=== PATIENT | female | born 2000 | race Caucasian/White ===

== ENCOUNTER 2024-12-13 08:00 | Inpatient (IN) ==
[2024-12-13] MEDS ORDERED: OXYTOCIN 30 UNITS/NSS 30 UNITS/500 ML BAG IV PRN (08:12)
[2024-12-13] MEDS ORDERED: LIDOCAINE 1% LOCAL 20 ML VIAL INFIL PRN (08:12)
[2024-12-13 09:14] LABS: Hematocrit (blood only) 34.4 % (37.0-47.0); Hemoglobin 11.7 g/dl (12.0-16.0); Mean Corpuscular Hemoglobin 26.8 pg (25.0-34.0); Mean Corpuscular Volume 78.7 fL (80.0-100.0); Platelet Count 171 K/uL (130-400); RDW Standard Deviation 42.4 fL (36.4-46.3); Red Blood Count 4.37 M/uL (4.20-5.40); White Blood Count 10.53 K/ul (4.8-10.8)
--- NOTE | 2024-12-13 09:24 | History & Physical Report ---
Date of Service December 13, 2024 Assessment & Plan (1) Encounter for induction of labor: Plan Admit; iv, labs, add Pitocin, FHR category 1 Admission and Anticipated Discharge Date Admission Date: December 13, 2024 History of Present Illness Primary Care Provider: Charles Ngo Contractions: Negative Painful: Negative Leaky Fluid: Negative Movement: Present Pt is a 24 yo Female, , 37 wks 1 day, arrives to Labor & Delivery for induction of labor. Pt appears AOx3 and is accompanied by her to the unit Labs: Rhesus Positive, GBS Negative Hx of STDs: Negative Allergies Allergy/AdvReac Type Severity Reaction Status Date / Time No Known Allergies Allergy Verified 12/12/24 13:35 Home Medications Medication Instructions Recorded Confirmed Type ondansetron HCl 4 mg tablet 4 mg PO Q6H PRN nausea and 08/06/24 12/12/24 Rx vomiting #30 tabs vitamins no.163-iron tab PO DAILY 10/16/24 12/12/24 History bis-gly 20 mg-folate no.10 1 mg tablet (PNV Tabs 20-1) levothyroxine 150 mcg tablet 150 mcg PO DAILY #90 tabs 11/08/24 12/13/24 Rx Patient History Medical History (Updated 12/13/24 @ 10:26 by Katharine Hollingsworth MD) Infertility, female Varicella vaccination Congenital omphalocele PCOS (polycystic ovarian syndrome) Hypothyroidism Surgical History (Updated 12/13/24 @ 08:29 by Shantell Khanna, R[place]) [place] teeth removed History of omphalocele surgical repair Family History Family/Other Breast cancer Maternal great grandmother Grandfather (Maternal) Diabetes Multiple myeloma Grandmother (Maternal) Lupus anticoagulant syndrome Denies family history of Ovarian cancer Prostate cancer Myocardial infarction Colorectal cancer Social History (Updated 05/07/24 @ 09:00 by Aura Castorena, R[place]) Smoking Status: Never smoker Do You Dip or Chew Tobacco: No; Hx Alcohol Use: No Hx Substance Use: No Preferred Language: Greenlandic Communication Ability: Effective Women'S Lacrosse Coach Required: No Beliefs That Will Affect Care: None marital status: marital status details: Laureano Joyce ([phone] Current Living Situation: Spouse Current Living Situation Comment: Lives with , 2 dogs and 2 cats- changing litter current occupational status: employed current occupation: Respiratory therapist Other Information That Helps Us Care for You: No Feels Safe at Home: Yes Safety Concerns: Feels Safe At This Time Dental Care, Regularly: Yes Seatbelt Use: always Sunscreen Use: Yes Review of Systems All systems reviewed & are unremarkable except as noted in HPI & below i. Denies fever, chills, sweats ii. Denies SOB, difficulty breathing, chest pain, palpitations, chest pressure iii. Denies breast pain. iv. Denies Dysuria v. Denies headache or changes in vision. Physical Exam Constitutional: WD/WN, vitals as above Eyes: PERRL, conjunctivae normal, anicteric sclerae ENMT: external ear and nose normal, oropharynx normal Neck: trachea midline, no thyromegaly Respiratory: normal respiratory effort, lungs clear to auscultation Cardiovascular: RRR, no murmur, no edema Gastrointestinal (Abdomen): normal bowel sounds, soft, nontender, no hepatosplenomegaly Musculoskeletal: no cyanosis or clubbing, extremities motor strength 5/5 Skin: no rashes, warm and dry Neurologic: patellar DTR's 2+ bilat, sensation intact Psychiatric: A+Ox3, euthymic affect Genitourinary: As per Dr. Saldivar's Attestation Lymphatic: no cervical or axillary lymphadenopathy Results & Data Vital Signs (Past 12 Hours) Vital Signs Temp Pulse Resp BP 12/13/24 08:12 36.9 C 20 12/13/24 08:12 79 143/81 H Supervising Physician Co-Signing Physician Notes Patient seen with resident agree with the above findings and plan. Cervical exam was noted to be closed/ 50/-3. Cervical Nicolas placed and will initiate oxytocin per regular protocol.
[2024-12-13] MEDS: LACTATED RINGER'S 1,000 ML IV PRN (09:28)
[2024-12-13] MEDS: OXYTOCIN 30 UNITS/NSS 30 UNITS/500 ML BAG IV PRN (09:45)
[2024-12-13] MEDS ORDERED: LIDOCAINE 2% MPF LOCAL 5 ML VIAL EPI PRN (13:47)
[2024-12-13] MEDS ORDERED: NALOXONE HCL 1 MG in SODIUM CHLORIDE 0.9% 1,000 ML IV PRN (13:47)
[2024-12-13] MEDS ORDERED: NALBUPHINE HCL INJ 10 MG/ML AMP IV PRN (13:47)
[2024-12-13] MEDS ORDERED: NALOXONE HCL 0.4 MG/1 ML VIAL/CARP IV PRN (13:47)
[2024-12-13] MEDS ORDERED: SODIUM CHLORIDE 0.9% PF INJ 10 ML VIAL EPI PRN (13:47)
[2024-12-13] MEDS ORDERED: ROPIVACAINE 0.5% PF 5 MG/ML 20 ML VIAL EPI PRN (13:47)
[2024-12-13] MEDS ORDERED: diphenhydrAMINE 50 MG/ML VIAL IV PRN (13:47)
--- NOTE | 2024-12-13 14:18 | Anesthesiology Consultation ---
Date of Service December 13, 2024 Assessment & Plan Chart Review Chart Review: Patient NOT seen in Pre Admission Testing and Acceptable Risk for Labor Epidural Consults Requested none ASA ASA3 Proposed Anesthesia Anesthesia Type: Labor Epidural Risk / Benefits Reviewed With: PT / POA / Parent / Guardian, Accepts Plan and Informed Consent Obtained History Height/Weight Height: 5 ft 2 in Weight: 111.584 kg Allergies Allergy/AdvReac Type Severity Reaction Status Date / Time No Known Allergies Allergy Verified 12/12/24 13:35 Medications Home Medications Medication Instructions Recorded Confirmed Last Taken ondansetron HCl 4 mg tablet 4 mg PO Q6H PRN nausea and 08/06/24 12/12/24 Unknown vomiting #30 tabs vitamins no.163-iron tab PO DAILY 10/16/24 12/12/24 12/13/24 05:30 bis-gly 20 mg-folate no.10 1 mg tablet (PNV Tabs 20-1) levothyroxine 150 mcg tablet 150 mcg PO DAILY #90 tabs 11/08/24 12/13/24 12/13/24 05:30 Active Medications Generic Name Dose Route Start Last Admin Trade Name Freq PRN Reason Stop Dose Admin Lactated Ringer's 1,000 mls @ 125 mls/hr 12/13/24 08:12 12/13/24 14:16 Lr IV 12/15/24 08:11 999 mls/hr .Q8H PRN Administration L&D Protocol Protocol Oxytocin 30 units in 500 mls @ 16 mls/hr 12/13/24 09:32 12/13/24 13:30 Pitocin 30 Units/Nss IV 12/15/24 09:31 0.96 units/hr .Q24H PRN 16 mls/hr Labor Induction/Augmentation Titration Protocol 0.96 UNITS/HR NPO Date Last Intake of Fluids: 12/13/24 Time Last Intake of Fluids: 14:00 Date Last Intake of Solids: 12/13/24 Time Last Intake of Solids: 06:00 Past Medical History Medical History Infertility, female Varicella vaccination Congenital omphalocele PCOS (polycystic ovarian syndrome) Hypothyroidism Exercise / Class Metabolic Activity 1 > 8 Run/Swim/Ski/Tennis Past Family History Family History Family/Other Breast cancer Maternal great grandmother Grandfather (Maternal) Diabetes Multiple myeloma Grandmother (Maternal) Lupus anticoagulant syndrome Denies family history of Ovarian cancer Prostate cancer Myocardial infarction Colorectal cancer Past Surgical History Surgical History [place] teeth removed History of omphalocele surgical repair Past Anesthesia History No Hx of Anesthesia Complications and No Family Hx of Anesthesia Complications History of PONV No Hx of PONV and No Hx of Motion Sickness Social History Smoking Status: Never smoker Do You Dip or Chew Tobacco: No Hx Alcohol Use: No Hx Substance Use: No Review of Systems ROS Unobtainable: All systems reviewed & are unremarkable except as noted in HPI & below Physical Exam Vital Signs Last Vital Signs Temp 36.7 C 12/13/24 11:53 Pulse 79 12/13/24 14:13 Resp 18 12/13/24 11:53 BP 137/96 12/13/24 13:38 Pulse Ox 93 12/13/24 14:13 Testing Laboratory Results 12/13/24 08:54 Blood Type A Positive 12/13/24 08:54 Antibody Screen NEGATIVE 12/13/24 08:54
[2024-12-13] MEDS: fentANYL 2 MCG/ML BUPIVacaine 0.125%-NSS 100ML BAG EPI PRN (14:31)
[2024-12-13] MEDS: LIDOCAINE 2%/EPINEPHRINE 1:200,000 20 ML PF EPI STA (14:35)
[2024-12-13] MEDS: SODIUM CHLORIDE 0.9% PF INJ 10 ML VIAL EPI STA (14:35)
[2024-12-13] MEDS: BUPIVACAINE 0.25% PF 30 ML VIAL EPI STA (14:35)
[2024-12-13] MEDS: BUPIVACAINE 0.25% PF 30 ML VIAL ONE ×2 (14:53→20:57)
[2024-12-13] MEDS: SODIUM CHLORIDE 0.9% PF INJ 10 ML VIAL ONE ×2 (14:54→20:57)
[2024-12-13] MEDS: fentANYL 2 MCG/ML BUPIVacaine 0.125%-NSS 100ML BAG ONE ×2 (14:54→20:57)
[2024-12-13] MEDS: LIDOCAINE 2%/EPINEPHRINE 1:200,000 20 ML PF ONE ×2 (14:54→20:57)
[2024-12-13] MEDS: BUPIVACAINE 0.25% PF 30 ML VIAL EPI PRN (19:20)
--- NOTE | 2024-12-13 19:34 | Anesthesia Procedure Note ---
Date of Service December 13, 2024 Anesthesia Epidural Re-Dose Vital Signs Temp Pulse Resp BP Pulse Ox 36.9 C 65 18 153/90 H 94 12/13/24 18:32 12/13/24 19:26 12/13/24 18:00 12/13/24 19:26 12/13/24 19:22 Notes Pain Intensity: 5 Dilatation (cm): 4.0 Effacement (%): 50 Called by nursing to evaluate epidural as the patient is having increased pain. The epidural was re-dosed with the following medications (all medications via epidural route) after negative aspiration of the epidural catheter for CSF/HEME. After Epidural Re-Dose Mental Status: alert / awake / arousable and participated in evaluation Pain: improving with treatment Airway Patency, RR, SpO2: stable & adequate BP & HR: stable & adequate Additional Notes: Patient complained of 5/10 pain. With ice, she feels cold down to L2. Dosed incrementally with 8 cc 0.25 bupi and 100 mcg fentanyl. Pain seemed to improve. Will check back in 30 min. HDS
--- NOTE | 2024-12-13 20:37 | Communication Note ---
Date of Service: December 13, 2024 Patient reports worsening pain. She noted improvement after last redose however given short time interval between feeling pain again, discussed with patient risks and benefits of replacing epidural. Patient agreeable.
--- NOTE | 2024-12-13 20:58 | Anesthesia Procedure Note ---
Date of Service December 13, 2024 Anesthesia Post Epidural Note Vital Signs Vital Signs: Temp Pulse Resp BP Pulse Ox 36.8 C 94 H 18 176/100 H 97 12/13/24 19:01 12/13/24 20:53 12/13/24 19:41 12/13/24 20:53 12/13/24 20:53 Pain Intensity Bilateral Abdomen: Pain Intensity: 5 Notes Mental Status: alert / awake / arousable and participated in evaluation Nausea / Vomiting: adequately controlled Pain: adequately controlled Airway Patency, RR, SpO2: stable & adequate BP & HR: stable & adequate Hydration State: stable & adequate Neuraxial Anesthesia: was administered and sensory block is resolving Anesthetic Complications: no major complications apparent Epidural: Removed without complications and With tip intact
--- NOTE | 2024-12-13 21:12 | Labor Progress Brief Note ---
Date of Service December 13, 2024 Subjective Reason For Note: Routine Evaluation This is a note recording evaluation that occurred at 1630. Scented for evaluation after cervical Nicolas came out Assessment & Plan (1) Encounter for induction of labor: Plan: Patient doing well. Cervical Nicolas out and patient ruptured for clear. Category 1 tracing. Vitals within normal limits. Patient comfortable with epidural. Admission and Anticipated Discharge Date Admission Date: December 13, 2024 Physical Exam Genitourinary: Manual OB Exam: + cervical dilation (4), + cervical effacement 50%, + station -2 and + amniotic fluid (AROM) clear OB Exam Monitor Tracing: + external FHT monitor used, + external uterine monitor used, + category I and + normal FHT variability Results & Data Vital Signs (Past 12 Hours) Vital Signs Temp Pulse Resp BP Pulse Ox 12/13/24 21:09 88 112/60 12/13/24 21:08 88 97 12/13/24 21:06 86 140/68 12/13/24 21:05 93 H 198/127 H 12/13/24 21:03 104 H 97 12/13/24 21:02 93 H 113/67 12/13/24 21:00 37.0 C 113 H 16 120/68 12/13/24 20:58 98 H 134/56 L 97 12/13/24 20:56 99 H 18 143/65 H 12/13/24 20:53 97 12/13/24 20:53 94 H 12/13/24 20:53 85 176/100 H 12/13/24 20:48 84 98 12/13/24 20:43 83 98 12/13/24 20:38 80 97 12/13/24 20:33 83 99 12/13/24 20:29 71 141/67 H 12/13/24 20:28 81 98 12/13/24 20:23 64 97 12/13/24 20:18 71 97 12/13/24 20:13 66 119/56 L 96 12/13/24 20:08 68 98 12/13/24 20:02 66 97 12/13/24 19:59 63 124/60 12/13/24 19:57 63 97 12/13/24 19:52 75 98 12/13/24 19:47 73 98 12/13/24 19:42 77 97 12/13/24 19:41 18 12/13/24 19:41 18 12/13/24 19:39 73 138/79 12/13/24 19:37 95 H 97 12/13/24 19:34 70 180/100 H 12/13/24 19:32 68 172/93 H 97 12/13/24 19:28 71 148/88 H 12/13/24 19:27 80 98 12/13/24 19:26 65 153/90 H 12/13/24 19:24 73 151/83 H 12/13/24 19:22 69 145/82 H 94 12/13/24 19:21 152/91 H 12/13/24 19:17 64 97 12/13/24 19:15 64 154/90 H 12/13/24 19:12 65 98 12/13/24 19:07 74 98 12/13/24 19:02 69 95 12/13/24 19:01 36.8 C 18 12/13/24 19:01 77 150/87 H 12/13/24 18:57 75 98 12/13/24 18:52 71 97 12/13/24 18:47 69 98 12/13/24 18:45 66 129/77 12/13/24 18:42 65 97 12/13/24 18:37 71 98 12/13/24 18:32 36.9 C 72 97 12/13/24 18:30 81 148/85 H 12/13/24 18:27 64 97 12/13/24 18:22 76 98 12/13/24 18:17 85 99 12/13/24 18:16 77 158/75 H 12/13/24 18:12 66 98 12/13/24 18:07 66 98 12/13/24 18:02 70 98 12/13/24 18:00 18 12/13/24 18:00 83 18 154/91 H 12/13/24 17:57 81 98 12/13/24 17:52 75 97 12/13/24 17:47 72 98 12/13/24 17:45 65 155/95 H 12/13/24 17:42 82 97 12/13/24 17:37 88 97 12/13/24 17:32 75 97 12/13/24 17:31 74 130/86 12/13/24 17:30 18 12/13/24 17:30 18 09/04/25 17:27 76 98 12/13/24 17:22 83 97 12/13/24 17:17 78 97 12/13/24 17:16 68 119/86 12/13/24 17:12 85 97 12/13/24 17:07 70 97 12/13/24 17:02 72 96 12/13/24 17:01 71 130/82 12/13/24 17:00 18 12/13/24 17:00 18 12/13/24 16:57 70 98 12/13/24 16:52 67 99 12/13/24 16:47 73 98 12/13/24 16:46 75 135/87 12/13/24 16:42 81 98 12/13/24 16:37 70 99 12/13/24 16:35 20 12/13/24 16:35 36.9 C 20 12/13/24 16:32 88 96 12/13/24 16:27 66 99 12/13/24 16:22 71 98 12/13/24 16:17 77 99 12/13/24 16:15 73 117/67 12/13/24 16:12 77 99 12/13/24 16:07 84 98 12/13/24 16:02 72 100 12/13/24 16:01 71 115/58 L 12/13/24 16:00 18 12/13/24 16:00 18 12/13/24 15:57 79 98 12/13/24 15:52 76 98 12/13/24 15:47 82 98 12/13/24 15:45 96 H 124/86 12/13/24 15:42 86 98 12/13/24 15:37 85 97 12/13/24 15:32 97 12/13/24 15:32 79 12/13/24 15:32 75 123/83 12/13/24 15:30 20 12/13/24 15:30 20 12/13/24 15:27 88 98 12/13/24 15:22 74 96 12/13/24 15:17 86 97 12/13/24 15:15 76 143/72 H 12/13/24 15:14 78 134/87 12/13/24 15:12 78 97 12/13/24 15:09 90 135/89 12/13/24 15:07 90 98 12/13/24 15:05 78 134/80 12/13/24 15:02 83 97 12/13/24 15:00 18 12/13/24 15:00 36.9 C 18 12/13/24 14:59 66 140/78 12/13/24 14:57 85 98 12/13/24 14:54 83 141/80 H 12/13/24 14:52 75 98 12/13/24 14:50 20 12/13/24 14:50 20 12/13/24 14:48 86 149/86 H 12/13/24 14:47 78 98 12/13/24 14:46 82 151/79 H 12/13/24 14:45 20 12/13/24 14:45 20 12/13/24 14:44 79 139/82 12/13/24 14:42 99 H 137/78 99 12/13/24 14:40 80 20 135/83 12/13/24 14:38 85 150/87 H 12/13/24 14:37 98 12/13/24 14:37 81 12/13/24 14:37 74 146/86 H 12/13/24 14:35 65 142/68 H 12/13/24 14:34 20 12/13/24 14:34 20 12/13/24 14:32 75 185/93 H 98 12/13/24 14:31 72 201/104 H 12/13/24 14:27 80 100 12/13/24 14:22 71 100 12/13/24 14:17 84 96 12/13/24 14:13 79 93 12/13/24 14:12 83 99 12/13/24 13:38 67 137/96 12/13/24 13:31 67 162/106 H 12/13/24 12:31 73 126/83 12/13/24 11:53 18 12/13/24 11:53 36.7 C 18 12/13/24 11:45 63 132/80 12/13/24 10:47 65 126/82 12/13/24 09:50 76 135/86 Coding Level of Care Code None Diagnoses Encounter for induction of labor Z34.90
--- NOTE | 2024-12-13 22:36 | Labor Progress Brief Note ---
Date of Service December 13, 2024 Assessment & Plan (1) Encounter for induction of labor: Plan: Cervix unchanged at 4/80-2. Pitocin at 28. Will discontinue oxytocin for 30 minutes and restart at 14. Category 1 tracing at present but was having intermittent late decelerations. Vitals within normal limit (2) Cholestasis during in third trimester: Admission and Anticipated Discharge Date Admission Date: December 13, 2024 Results & Data Vital Signs (Past 12 Hours) Vital Signs Temp Pulse Resp BP Pulse Ox 12/13/24 22:30 80 140/99 12/13/24 22:28 103 H 99 12/13/24 22:23 85 97 12/13/24 22:18 77 97 12/13/24 22:16 82 116/66 12/13/24 22:13 82 97 12/13/24 22:08 91 H 97 12/13/24 22:03 122 H 99 12/13/24 22:00 75 108/58 L 12/13/24 21:58 72 95 12/13/24 21:53 80 95 12/13/24 21:48 78 96 12/13/24 21:45 82 12/13/24 21:45 83 111/63 94 12/13/24 21:43 82 96 12/13/24 21:38 81 96 12/13/24 21:33 86 97 12/13/24 21:31 18 12/13/24 21:31 18 12/13/24 21:28 90 113/56 L 97 12/13/24 21:25 86 115/61 12/13/24 21:23 79 97 12/13/24 21:19 93 H 133/69 12/13/24 21:18 90 97 12/13/24 21:14 90 119/58 L 12/13/24 21:13 94 H 98 12/13/24 21:11 91 H 116/58 L 12/13/24 21:09 88 112/60 12/13/24 21:08 88 97 12/13/24 21:06 86 140/68 12/13/24 21:05 93 H 198/127 H 12/13/24 21:03 104 H 97 12/13/24 21:02 93 H 113/67 12/13/24 21:00 37.0 C 113 H 16 120/68 12/13/24 20:58 98 H 134/56 L 97 12/13/24 20:56 99 H 18 143/65 H 12/13/24 20:53 97 12/13/24 20:53 94 H 12/13/24 20:53 85 176/100 H 12/13/24 20:48 84 98 12/13/24 20:43 83 98 12/13/24 20:38 80 97 12/13/24 20:33 83 99 12/13/24 20:29 71 141/67 H 12/13/24 20:28 81 98 12/13/24 20:23 64 97 12/13/24 20:18 71 97 12/13/24 20:13 66 119/56 L 96 12/13/24 20:08 68 98 12/13/24 20:02 66 97 12/13/24 19:59 63 124/60 12/13/24 19:57 63 97 12/13/24 19:52 75 98 12/13/24 19:47 73 98 12/13/24 19:42 77 97 12/13/24 19:41 18 12/13/24 19:41 18 12/13/24 19:39 73 138/79 12/13/24 19:37 95 H 97 12/13/24 19:34 70 180/100 H 12/13/24 19:32 68 172/93 H 97 12/13/24 19:28 71 148/88 H 12/13/24 19:27 80 98 12/13/24 19:26 65 153/90 H 12/13/24 19:24 73 151/83 H 12/13/24 19:22 69 145/82 H 94 12/13/24 19:21 152/91 H 12/13/24 19:17 64 97 12/13/24 19:15 64 154/90 H 12/13/24 19:12 65 98 12/13/24 19:07 74 98 12/13/24 19:02 69 95 12/13/24 19:01 36.8 C 18 12/13/24 19:01 77 150/87 H 12/13/24 18:57 75 98 12/13/24 18:52 71 97 12/13/24 18:47 69 98 12/13/24 18:45 66 129/77 12/13/24 18:42 65 97 12/13/24 18:37 71 98 12/13/24 18:32 36.9 C 72 97 12/13/24 18:30 81 148/85 H 12/13/24 18:27 64 97 12/13/24 18:22 76 98 12/13/24 18:17 85 99 12/13/24 18:16 77 158/75 H 12/13/24 18:12 66 98 12/13/24 18:07 66 98 12/13/24 18:02 70 98 12/13/24 18:00 18 12/13/24 18:00 83 18 154/91 H 12/13/24 17:57 81 98 12/13/24 17:52 75 97 12/13/24 17:47 72 98 12/13/24 17:45 65 155/95 H 12/13/24 17:42 82 97 12/13/24 17:37 88 97 12/13/24 17:32 75 97 12/13/24 17:31 74 130/86 12/13/24 17:30 18 12/13/24 17:30 18 12/13/24 17:27 76 98 12/13/24 17:22 83 97 12/13/24 17:17 78 97 12/13/24 17:16 68 119/86 12/13/24 17:12 85 97 12/13/24 17:07 70 97 12/13/24 17:02 72 96 12/13/24 17:01 71 130/82 12/13/24 17:00 18 12/13/24 17:00 18 12/13/24 16:57 70 98 12/13/24 16:52 67 99 12/13/24 16:47 73 98 12/13/24 16:46 75 135/87 12/13/24 16:42 81 98 12/13/24 16:37 70 99 12/13/24 16:35 20 12/13/24 16:35 36.9 C 20 12/13/24 16:32 88 96 12/13/24 16:27 66 99 12/13/24 16:22 71 98 12/13/24 16:17 77 99 12/13/24 16:15 73 117/67 12/13/24 16:12 77 99 12/13/24 16:07 84 98 12/13/24 16:02 72 100 12/13/24 16:01 71 115/58 L 12/13/24 16:00 18 12/13/24 16:00 18 12/13/24 15:57 79 98 12/13/24 15:52 76 98 12/13/24 15:47 82 98 12/13/24 15:45 96 H 124/86 12/13/24 15:42 86 98 12/13/24 15:37 85 97 12/13/24 15:32 97 12/13/24 15:32 79 12/13/24 15:32 75 123/83 12/13/24 15:30 20 12/13/24 15:30 20 12/13/24 15:27 88 98 12/13/24 15:22 74 96 12/13/24 15:17 86 97 12/13/24 15:15 76 143/72 H 12/13/24 15:14 78 134/87 12/13/24 15:12 78 97 12/13/24 15:09 90 135/89 12/13/24 15:07 90 98 12/13/24 15:05 78 134/80 12/13/24 15:02 83 97 12/13/24 15:00 18 12/13/24 15:00 36.9 C 18 12/13/24 14:59 66 140/78 12/13/24 14:57 85 98 12/13/24 14:54 83 141/80 H 12/13/24 14:52 75 98 12/13/24 14:50 20 12/13/24 14:50 20 12/13/24 14:48 86 149/86 H 12/13/24 14:47 78 98 12/13/24 14:46 82 151/79 H 12/13/24 14:45 20 12/13/24 14:45 20 12/13/24 14:44 79 139/82 12/13/24 14:42 99 H 137/78 99 12/13/24 14:40 80 20 135/83 12/13/24 14:38 85 150/87 H 12/13/24 14:37 98 12/13/24 14:37 81 12/13/24 14:37 74 146/86 H 12/13/24 14:35 65 142/68 H 12/13/24 14:34 20 12/13/24 14:34 20 12/13/24 14:32 75 185/93 H 98 12/13/24 14:31 72 201/104 H 12/13/24 14:27 80 100 12/13/24 14:22 71 100 12/13/24 14:17 84 96 12/13/24 14:13 79 93 12/13/24 14:12 83 99 12/13/24 13:38 67 137/96 12/13/24 13:31 67 162/106 H 12/13/24 12:31 73 126/83 12/13/24 11:53 18 12/13/24 11:53 36.7 C 18 12/13/24 11:45 63 132/80 12/13/24 10:47 65 126/82 Coding Level of Care Code None Diagnoses Encounter for induction of labor Z34.90 Cholestasis during in third trimester O26.643
--- NOTE | 2024-12-14 07:12 | Labor Progress Brief Note ---
Date of Service December 14, 2024 Subjective Reason For Note: Routine Evaluation Assessment & Plan (1) Encounter for induction of labor: Plan: No cervical change noted. IUPC showing inadequate contractions. Will disc ontinue Pitocin for washout. Will restart after approximately 30 minutes. Category 1 tracing. Vitals within normal limits (2) Cholestasis during in third trimester: Admission and Anticipated Discharge Date Admission Date: December 13, 2024 Physical Exam Genitourinary: OB Exam Monitor Tracing: + external FHT monitor used, + external uterine monitor used, + category I and + normal FHT variability 5/80/-2 per nurse exam. Results & Data Vital Signs (Past 12 Hours) Vital Signs Temp Pulse Resp BP Pulse Ox 12/14/24 04:33 78 97 12/14/24 04:30 16 136/86 12/14/24 04:28 71 97 12/14/24 04:23 75 97 12/14/24 04:18 78 97 12/14/24 04:16 72 140/79 12/14/24 04:13 75 96 12/14/24 04:08 75 97 12/14/24 04:03 80 96 12/14/24 04:00 79 16 147/85 H 12/14/24 03:58 74 96 12/14/24 03:53 73 96 12/14/24 03:48 78 97 12/14/24 03:47 99 H 93 12/14/24 03:45 73 141/65 H 12/14/24 03:43 81 95 12/14/24 03:38 72 98 12/14/24 03:33 69 97 12/14/24 03:31 75 131/70 12/14/24 03:28 74 96 12/14/24 03:23 76 97 12/14/24 03:18 76 98 12/14/24 03:13 76 97 12/14/24 03:08 71 98 12/14/24 03:03 75 99 12/14/24 03:01 18 12/14/24 03:01 36.9 C 18 12/14/24 03:00 74 136/79 12/14/24 02:58 85 99 12/14/24 02:53 111 H 100 12/14/24 02:48 75 96 12/14/24 02:46 75 107/70 12/14/24 02:45 75 94 12/14/24 02:43 74 95 12/14/24 02:38 74 95 12/14/24 02:33 71 97 12/14/24 02:31 72 102/70 12/14/24 02:28 71 96 12/14/24 02:23 77 94 12/14/24 02:18 75 96 12/14/24 02:16 70 108/69 12/14/24 02:13 76 96 12/14/24 02:08 79 96 12/14/24 02:03 73 97 12/14/24 02:00 68 108/63 12/14/24 01:58 72 97 12/14/24 01:53 73 97 12/14/24 01:48 72 97 12/14/24 01:44 71 110/63 12/14/24 01:43 72 97 12/14/24 01:38 72 97 12/14/24 01:33 83 97 12/14/24 01:31 71 107/68 12/14/24 01:28 71 97 12/14/24 01:23 75 97 12/14/24 01:18 71 97 12/14/24 01:16 69 127/72 12/14/24 01:13 78 97 12/14/24 01:08 71 97 12/14/24 01:04 16 12/14/24 01:04 36.7 C 16 12/14/24 01:03 79 98 12/14/24 00:58 72 97 12/14/24 00:53 69 96 12/14/24 00:48 66 97 12/14/24 00:43 68 96 12/14/24 00:38 66 96 12/14/24 00:33 65 96 12/14/24 00:28 70 96 12/14/24 00:23 76 95 12/14/24 00:18 97 12/14/24 00:18 74 12/14/24 00:18 75 94 12/14/24 00:16 75 132/92 12/14/24 00:13 81 96 12/14/24 00:08 70 97 12/14/24 00:03 68 98 12/14/24 00:02 73 134/77 12/14/24 00:00 81 94 12/13/24 23:58 66 97 12/13/24 23:53 67 97 12/13/24 23:48 70 97 12/13/24 23:45 73 170/81 H 12/13/24 23:43 67 96 12/13/24 23:38 73 97 12/13/24 23:33 66 97 12/13/24 23:28 66 97 12/13/24 23:23 69 97 12/13/24 23:18 75 96 12/13/24 23:13 76 97 12/13/24 23:08 74 97 12/13/24 23:03 72 97 12/13/24 23:01 16 12/13/24 23:01 36.9 C 16 12/13/24 23:00 77 110/54 L 12/13/24 22:58 77 97 12/13/24 22:53 71 97 12/13/24 22:48 86 98 12/13/24 22:45 72 120/56 L 12/13/24 22:43 75 97 12/13/24 22:38 75 98 12/13/24 22:33 79 98 12/13/24 22:30 80 140/99 12/13/24 22:28 103 H 99 12/13/24 22:23 85 97 12/13/24 22:18 77 97 12/13/24 22:16 82 116/66 12/13/24 22:13 82 97 12/13/24 22:08 91 H 97 12/13/24 22:03 122 H 99 12/13/24 22:00 75 108/58 L 12/13/24 21:58 72 95 12/13/24 21:53 80 95 12/13/24 21:48 78 96 12/13/24 21:45 82 12/13/24 21:45 83 111/63 94 12/13/24 21:43 82 96 12/13/24 21:38 81 96 12/13/24 21:33 86 97 12/13/24 21:31 18 12/13/24 21:31 18 12/13/24 21:28 90 113/56 L 97 12/13/24 21:25 86 115/61 12/13/24 21:23 79 97 12/13/24 21:19 93 H 133/69 12/13/24 21:18 90 97 12/13/24 21:14 90 119/58 L 12/13/24 21:13 94 H 98 12/13/24 21:11 91 H 116/58 L 12/13/24 21:09 88 112/60 12/13/24 21:08 88 97 12/13/24 21:06 86 140/68 12/13/24 21:05 93 H 198/127 H 12/13/24 21:03 104 H 97 12/13/24 21:02 93 H 113/67 12/13/24 21:00 37.0 C 113 H 16 120/68 12/13/24 20:58 98 H 134/56 L 97 12/13/24 20:56 99 H 18 143/65 H 12/13/24 20:53 97 12/13/24 20:53 94 H 12/13/24 20:53 85 176/100 H 12/13/24 20:48 84 98 12/13/24 20:43 83 98 12/13/24 20:38 80 97 12/13/24 20:33 83 99 12/13/24 20:29 71 141/67 H 12/13/24 20:28 81 98 12/13/24 20:23 64 97 12/13/24 20:18 71 97 12/13/24 20:13 66 119/56 L 96 12/13/24 20:08 68 98 12/13/24 20:02 66 97 12/13/24 19:59 63 124/60 12/13/24 19:57 63 97 12/13/24 19:52 75 98 12/13/24 19:47 73 98 12/13/24 19:42 77 97 12/13/24 19:41 18 12/13/24 19:41 18 12/13/24 19:39 73 138/79 12/13/24 19:37 95 H 97 12/13/24 19:34 70 180/100 H 12/13/24 19:32 68 172/93 H 97 12/13/24 19:28 71 148/88 H 12/13/24 19:27 80 98 12/13/24 19:26 65 153/90 H 12/13/24 19:24 73 151/83 H 12/13/24 19:22 69 145/82 H 94 12/13/24 19:21 152/91 H 12/13/24 19:17 64 97 12/13/24 19:15 64 154/90 H 12/13/24 19:12 65 98 12/13/24 19:07 74 98 12/13/24 19:02 69 95 12/13/24 19:01 36.8 C 18 12/13/24 19:01 77 150/87 H 12/13/24 18:57 75 98 12/13/24 18:52 71 97 12/13/24 18:47 69 98 12/13/24 18:45 66 129/77 12/13/24 18:42 65 97 12/13/24 18:37 71 98 12/13/24 18:32 36.9 C 72 97 12/13/24 18:30 81 148/85 H 12/13/24 18:27 64 97 12/13/24 18:22 76 98 12/13/24 18:17 85 99 12/13/24 18:16 77 158/75 H 12/13/24 18:12 66 98 12/13/24 18:07 66 98 12/13/24 18:02 70 98 12/13/24 18:00 18 12/13/24 18:00 83 18 154/91 H 12/13/24 17:57 81 98 12/13/24 17:52 75 97 12/13/24 17:47 72 98 12/13/24 17:45 65 155/95 H 12/13/24 17:42 82 97 12/13/24 17:37 88 97 12/13/24 17:32 75 97 12/13/24 17:31 74 130/86 12/13/24 17:30 18 12/13/24 17:30 18 12/13/24 17:27 76 98 12/13/24 17:22 83 97 12/13/24 17:17 78 97 12/13/24 17:16 68 119/86 12/13/24 17:12 85 97 12/13/24 17:07 70 97 12/13/24 17:02 72 96 12/13/24 17:01 71 130/82 12/13/24 17:00 18 12/13/24 17:00 18 12/13/24 16:57 70 98 12/13/24 16:52 67 99 12/13/24 16:47 73 98 12/13/24 16:46 75 135/87 12/13/24 16:42 81 98 Coding Level of Care Code None Diagnoses Encounter for induction of labor Z34.90 Cholestasis during in third trimester O26.643
--- NOTE | 2024-12-14 07:43 | Labor Progress Brief Note ---
Date of Service December 14, 2024 Subjective Reason For Note: Routine Evaluation Assessment & Plan (1) Cholestasis during in third trimester: (2) Encounter for induction of labor: Plan No progression noted. An adequate contractions noted on tocometer with Pit currently at 10. Several mild range blood pressures noted but denies any preeclampsia symptoms. Will continue to titrate Pitocin Admission and Anticipated Discharge Date Admission Date: December 13, 2024 Physical Exam Genitourinary: Manual OB Exam: + cervical dilation (4-5), + cervical effacement 70%, + station -2 and + amniotic fluid OB Exam Monitor Tracing: + external FHT monitor used, + external uterine monitor used, + category I and + normal FHT variability Results & Data Vital Signs (Past 12 Hours) Vital Signs Temp Pulse Resp BP Pulse Ox 12/14/24 07:39 85 154/92 H 12/14/24 07:38 87 166/99 H 98 12/14/24 07:33 86 98 12/14/24 07:28 72 97 12/14/24 07:23 83 99 12/14/24 07:18 92 H 98 12/14/24 07:16 80 127/65 12/14/24 07:13 84 97 12/14/24 07:08 93 H 98 12/14/24 07:03 77 96 12/14/24 07:02 77 115/62 12/14/24 06:58 79 95 12/14/24 06:53 72 97 12/14/24 06:48 75 96 12/14/24 06:46 77 103/73 12/14/24 06:43 73 97 12/14/24 06:38 80 96 12/14/24 06:33 74 98 12/14/24 06:30 77 111/70 12/14/24 06:28 79 98 12/14/24 06:23 76 98 12/14/24 06:18 74 98 12/14/24 06:15 86 124/71 12/14/24 06:13 92 H 97 12/14/24 06:08 79 98 12/14/24 06:03 97 H 97 12/14/24 05:58 80 98 12/14/24 05:53 93 H 97 12/14/24 05:48 94 H 98 12/14/24 05:46 77 131/68 12/14/24 05:43 80 97 12/14/24 05:38 79 97 12/14/24 05:33 76 97 12/14/24 05:28 77 97 12/14/24 05:23 74 97 12/14/24 05:18 75 97 12/14/24 05:15 83 134/82 12/14/24 05:13 77 97 12/14/24 05:08 78 97 12/14/24 05:03 91 H 154/92 H 98 12/14/24 05:00 90 151/104 H 12/14/24 04:58 96 H 98 12/14/24 04:55 18 12/14/24 04:55 37.0 C 18 12/14/24 04:53 106 H 99 12/14/24 04:48 82 99 12/14/24 04:46 68 150/78 H 12/14/24 04:43 75 96 12/14/24 04:38 72 96 12/14/24 04:33 78 97 12/14/24 04:30 16 136/86 12/14/24 04:28 71 97 12/14/24 04:23 75 97 12/14/24 04:18 78 97 12/14/24 04:16 72 140/79 12/14/24 04:13 75 96 12/14/24 04:08 75 97 12/14/24 04:03 80 96 12/14/24 04:00 79 16 147/85 H 12/14/24 03:58 74 96 12/14/24 03:53 73 96 12/14/24 03:48 78 97 12/14/24 03:47 99 H 93 12/14/24 03:45 73 141/65 H 12/14/24 03:43 81 95 12/14/24 03:38 72 98 12/14/24 03:33 69 97 12/14/24 03:31 75 131/70 12/14/24 03:28 74 96 12/14/24 03:23 76 97 12/14/24 03:18 76 98 12/14/24 03:13 76 97 12/14/24 03:08 71 98 12/14/24 03:03 75 99 12/14/24 03:01 18 12/14/24 03:01 36.9 C 18 12/14/24 03:00 74 136/79 12/14/24 02:58 85 99 12/14/24 02:53 111 H 100 12/14/24 02:48 75 96 12/14/24 02:46 75 107/70 12/14/24 02:45 75 94 12/14/24 02:43 74 95 12/14/24 02:38 74 95 12/14/24 02:33 71 97 12/14/24 02:31 72 102/70 12/14/24 02:28 71 96 12/14/24 02:23 77 94 12/14/24 02:18 75 96 12/14/24 02:16 70 108/69 12/14/24 02:13 76 96 12/14/24 02:08 79 96 12/14/24 02:03 73 97 12/14/24 02:00 68 108/63 12/14/24 01:58 72 97 12/14/24 01:53 73 97 12/14/24 01:48 72 97 12/14/24 01:44 71 110/63 12/14/24 01:43 72 97 12/14/24 01:38 72 97 12/14/24 01:33 83 97 12/14/24 01:31 71 107/68 12/14/24 01:28 71 97 12/14/24 01:23 75 97 12/14/24 01:18 71 97 12/14/24 01:16 69 127/72 12/14/24 01:13 78 97 12/14/24 01:08 71 97 12/14/24 01:04 16 12/14/24 01:04 36.7 C 16 12/14/24 01:03 79 98 12/14/24 00:58 72 97 12/14/24 00:53 69 96 12/14/24 00:48 66 97 12/14/24 00:43 68 96 12/14/24 00:38 66 96 12/14/24 00:33 65 96 12/14/24 00:28 70 96 12/14/24 00:23 76 95 12/14/24 00:18 97 12/14/24 00:18 74 12/14/24 00:18 75 94 05 00:16 75 132/92 12/14/24 00:13 81 96 12/14/24 00:08 70 97 12/14/24 00:03 68 98 09/05/25 00:02 73 134/77 12/14/24 00:00 81 94 12/13/24 23:58 66 97 12/13/24 23:53 67 97 12/13/24 23:48 70 97 12/13/24 23:45 73 170/81 H 12/13/24 23:43 67 96 12/13/24 23:38 73 97 12/13/24 23:33 66 97 12/13/24 23:28 66 97 12/13/24 23:23 69 97 12/13/24 23:18 75 96 12/13/24 23:13 76 97 12/13/24 23:08 74 97 12/13/24 23:03 72 97 12/13/24 23:01 16 12/13/24 23:01 36.9 C 16 12/13/24 23:00 77 110/54 L 12/13/24 22:58 77 97 12/13/24 22:53 71 97 12/13/24 22:48 86 98 12/13/24 22:45 72 120/56 L 12/13/24 22:43 75 97 12/13/24 22:38 75 98 12/13/24 22:33 79 98 12/13/24 22:30 80 140/99 12/13/24 22:28 103 H 99 12/13/24 22:23 85 97 12/13/24 22:18 77 97 12/13/24 22:16 82 116/66 12/13/24 22:13 82 97 12/13/24 22:08 91 H 97 12/13/24 22:03 122 H 99 12/13/24 22:00 75 108/58 L 12/13/24 21:58 72 95 12/13/24 21:53 80 95 12/13/24 21:48 78 96 12/13/24 21:45 82 12/13/24 21:45 83 111/63 94 12/13/24 21:43 82 96 12/13/24 21:38 81 96 12/13/24 21:33 86 97 12/13/24 21:31 18 12/13/24 21:31 18 12/13/24 21:28 90 113/56 L 97 12/13/24 21:25 86 115/61 12/13/24 21:23 79 97 12/13/24 21:19 93 H 133/69 12/13/24 21:18 90 97 12/13/24 21:14 90 119/58 L 12/13/24 21:13 94 H 98 12/13/24 21:11 91 H 116/58 L 12/13/24 21:09 88 112/60 12/13/24 21:08 88 97 12/13/24 21:06 86 140/68 12/13/24 21:05 93 H 198/127 H 12/13/24 21:03 104 H 97 12/13/24 21:02 93 H 113/67 12/13/24 21:00 37.0 C 113 H 16 120/68 12/13/24 20:58 98 H 134/56 L 97 12/13/24 20:56 99 H 18 143/65 H 12/13/24 20:53 97 12/13/24 20:53 94 H 12/13/24 20:53 85 176/100 H 12/13/24 20:48 84 98 12/13/24 20:43 83 98 12/13/24 20:38 80 97 12/13/24 20:33 83 99 12/13/24 20:29 71 141/67 H 12/13/24 20:28 81 98 12/13/24 20:23 64 97 12/13/24 20:18 71 97 12/13/24 20:13 66 119/56 L 96 12/13/24 20:08 68 98 12/13/24 20:02 66 97 12/13/24 19:59 63 124/60 12/13/24 19:57 63 97 12/13/24 19:52 75 98 12/13/24 19:47 73 98 12/13/24 19:42 77 97 12/13/24 19:41 18 12/13/24 19:41 18 Coding Level of Care Code None Diagnoses Cholestasis during in third trimester O26.643 Encounter for induction of labor Z34.90
--- NOTE | 2024-12-14 09:13 | Labor Progress Brief Note ---
Date of Service December 14, 2024 Subjective Patient overall comfortable. Assessment & Plan (1) Cholestasis during in third trimester: Plan iupc replaced and appears to be recording better. Going up on the pitocin for the third time. Fetus is still very high. Will continue to watch closely. fetus overall category one. I am starting to have concern about lack of progress, but contractions do not appear to be adequate. Admission and Anticipated Discharge Date Admission Date: December 13, 2024 Physical Exam Physical Exam: cx--/-3 iupc replaced as it was not recording well toco--q2-4min, pit at 12 efm--125 with mod variability, accels present, rare variable Results & Data Vital Signs (Past 12 Hours) Vital Signs Temp Pulse Resp BP Pulse Ox 12/14/24 09:08 81 98 12/14/24 09:03 91 H 97 12/14/24 08:58 73 97 12/14/24 08:54 72 129/62 12/14/24 08:53 84 98 12/14/24 08:48 69 98 12/14/24 08:43 92 H 98 12/14/24 08:39 81 149/100 H 12/14/24 08:38 93 H 97 12/14/24 08:33 75 96 12/14/24 08:28 74 96 12/14/24 08:24 73 142/88 H 12/14/24 08:23 76 96 12/14/24 08:18 75 95 12/14/24 08:13 72 97 12/14/24 08:10 73 147/85 H 12/14/24 08:08 96 12/14/24 08:08 78 12/14/24 08:08 79 94 12/14/24 08:03 83 96 12/14/24 08:00 18 12/14/24 08:00 18 12/14/24 07:58 70 96 12/14/24 07:55 67 138/89 12/14/24 07:53 71 96 12/14/24 07:48 74 96 12/14/24 07:43 76 97 12/14/24 07:39 85 154/92 H 12/14/24 07:38 87 166/99 H 98 12/14/24 07:33 86 98 12/14/24 07:28 72 97 12/14/24 07:23 83 99 12/14/24 07:18 92 H 98 12/14/24 07:16 80 127/65 12/14/24 07:13 84 97 12/14/24 07:08 93 H 98 12/14/24 07:03 77 96 12/14/24 07:02 37.1 C 77 20 115/62 12/14/24 06:58 79 95 12/14/24 06:53 72 97 12/14/24 06:48 75 96 12/14/24 06:46 77 103/73 12/14/24 06:43 73 97 12/14/24 06:38 80 96 12/14/24 06:33 74 98 12/14/24 06:30 77 111/70 12/14/24 06:28 79 98 12/14/24 06:23 76 98 12/14/24 06:18 74 98 12/14/24 06:15 86 124/71 12/14/24 06:13 92 H 97 12/14/24 06:08 79 98 12/14/24 06:03 97 H 97 12/14/24 05:58 80 98 12/14/24 05:53 93 H 97 12/14/24 05:48 94 H 98 12/14/24 05:46 77 131/68 12/14/24 05:43 80 97 12/14/24 05:38 79 97 12/14/24 05:33 76 97 12/14/24 05:28 77 97 12/14/24 05:23 74 97 12/14/24 05:18 75 97 12/14/24 05:15 83 134/82 12/14/24 05:13 77 97 12/14/24 05:08 78 97 12/14/24 05:03 91 H 154/92 H 98 12/14/24 05:00 90 151/104 H 12/14/24 04:58 96 H 98 12/14/24 04:55 18 12/14/24 04:55 37.0 C 18 12/14/24 04:53 106 H 99 12/14/24 04:48 82 99 12/14/24 04:46 68 150/78 H 12/14/24 04:43 75 96 12/14/24 04:38 72 96 12/14/24 04:33 78 97 12/14/24 04:30 16 136/86 09/05/25 04:28 71 97 12/14/24 04:23 75 97 12/14/24 04:18 78 97 12/14/24 04:16 72 140/79 12/14/24 04:13 75 96 12/14/24 04:08 75 97 12/14/24 04:03 80 96 12/14/24 04:00 79 16 147/85 H 12/14/24 03:58 74 96 12/14/24 03:53 73 96 12/14/24 03:48 78 97 12/14/24 03:47 99 H 93 12/14/24 03:45 73 141/65 H 12/14/24 03:43 81 95 12/14/24 03:38 72 98 12/14/24 03:33 69 97 12/14/24 03:31 75 131/70 12/14/24 03:28 74 96 12/14/24 03:23 76 97 12/14/24 03:18 76 98 12/14/24 03:13 76 97 12/14/24 03:08 71 98 12/14/24 03:03 75 99 12/14/24 03:01 18 12/14/24 03:01 36.9 C 18 12/14/24 03:00 74 136/79 12/14/24 02:58 85 99 12/14/24 02:53 111 H 100 12/14/24 02:48 75 96 12/14/24 02:46 75 107/70 12/14/24 02:45 75 94 12/14/24 02:43 74 95 12/14/24 02:38 74 95 12/14/24 02:33 71 97 12/14/24 02:31 72 102/70 12/14/24 02:28 71 96 12/14/24 02:23 77 94 12/14/24 02:18 75 96 12/14/24 02:16 70 108/69 12/14/24 02:13 76 96 12/14/24 02:08 79 96 12/14/24 02:03 73 97 12/14/24 02:00 68 108/63 12/14/24 01:58 72 97 12/14/24 01:53 73 97 12/14/24 01:48 72 97 12/14/24 01:44 71 110/63 12/14/24 01:43 72 97 12/14/24 01:38 72 97 12/14/24 01:33 83 97 12/14/24 01:31 71 107/68 12/14/24 01:28 71 97 12/14/24 01:23 75 97 12/14/24 01:18 71 97 12/14/24 01:16 69 127/72 12/14/24 01:13 78 97 12/14/24 01:08 71 97 12/14/24 01:04 16 12/14/24 01:04 36.7 C 16 12/14/24 01:03 79 98 12/14/24 00:58 72 97 12/14/24 00:53 69 96 12/14/24 00:48 66 97 12/14/24 00:43 68 96 12/14/24 00:38 66 96 12/14/24 00:33 65 96 12/14/24 00:28 70 96 12/14/24 00:23 76 95 12/14/24 00:18 97 12/14/24 00:18 74 12/14/24 00:18 75 94 12/14/24 00:16 75 132/92 12/14/24 00:13 81 96 12/14/24 00:08 70 97 12/14/24 00:03 68 98 12/14/24 00:02 73 134/77 12/14/24 00:00 81 94 12/13/24 23:58 66 97 12/13/24 23:53 67 97 12/13/24 23:48 70 97 12/13/24 23:45 73 170/81 H 12/13/24 23:43 67 96 12/13/24 23:38 73 97 12/13/24 23:33 66 97 12/13/24 23:28 66 97 12/13/24 23:23 69 97 12/13/24 23:18 75 96 12/13/24 23:13 76 97 12/13/24 23:08 74 97 12/13/24 23:03 72 97 12/13/24 23:01 16 12/13/24 23:01 36.9 C 16 12/13/24 23:00 77 110/54 L 12/13/24 22:58 77 97 12/13/24 22:53 71 97 12/13/24 22:48 86 98 12/13/24 22:45 72 120/56 L 12/13/24 22:43 75 97 12/13/24 22:38 75 98 12/13/24 22:33 79 98 12/13/24 22:30 80 140/99 12/13/24 22:28 103 H 99 12/13/24 22:23 85 97 12/13/24 22:18 77 97 12/13/24 22:16 82 116/66 12/13/24 22:13 82 97 12/13/24 22:08 91 H 97 12/13/24 22:03 122 H 99 12/13/24 22:00 75 108/58 L 12/13/24 21:58 72 95 12/13/24 21:53 80 95 12/13/24 21:48 78 96 12/13/24 21:45 82 12/13/24 21:45 83 111/63 94 12/13/24 21:43 82 96 12/13/24 21:38 81 96 12/13/24 21:33 86 97 12/13/24 21:31 18 12/13/24 21:31 18 12/13/24 21:28 90 113/56 L 97 12/13/24 21:25 86 115/61 12/13/24 21:23 79 97 12/13/24 21:19 93 H 133/69 12/13/24 21:18 90 97 12/13/24 21:14 90 119/58 L 12/13/24 21:13 94 H 98 Coding Level of Care Code None Diagnoses Cholestasis during in third trimester O26.643
[2024-12-14] MEDS ORDERED: NURSING L&D Epidural Breakthrough Pain Update ONE (10:57)
--- NOTE | 2024-12-14 12:40 | Labor Progress Brief Note ---
Date of Service December 14, 2024 Subjective comfortable Assessment & Plan (1) Cholestasis during in third trimester: (2) Obesity affecting : Plan third time going up and still not getting into any type of viable contraction pattern. fetus category one. Discussed could max out pit again at 30, but do not think outcome will be any different. I recommend moving forward with c/s and she is agreeable. The risks of surgery were discussed with the patient including the risks of anesthesia, bleeding requiring transfusion, infection, poor wound healing, urinary retention, damage to surrounding structures includi ng bowels, bladder, vessels, nerves and ureters that may require further surgery, hospitalization or intervention. The other risks of any surgery were discussed including heart attack, blood clots, stroke or . Discussed risk of injury to the baby. Admission and Anticipated Discharge Date Admission Date: December 13, 2024 Physical Exam Physical Exam: cx--unchanged toco--very dysfunctional labor pattern, get a few good contractions and then runs of minimal contraction activity efm--130s with mod variability, small accels, rare decel Results & Data Vital Signs (Past 12 Hours) Vital Signs Temp Pulse Resp BP Pulse Ox 12/14/24 12:33 116 H 100 12/14/24 12:28 75 12/14/24 12:24 80 18 133/69 12/14/24 12:23 76 12/14/24 12:22 81 140/84 12/14/24 12:18 86 12/14/24 12:13 73 12/14/24 12:08 81 12/14/24 12:03 73 99 12/14/24 12:00 20 12/14/24 12:00 20 12/14/24 11:58 91 H 98 12/14/24 11:53 73 12/14/24 11:48 77 12/14/24 11:43 74 98 12/14/24 11:39 88 143/91 H 12/14/24 11:38 92 H 98 12/14/24 11:33 89 100 12/14/24 11:28 95 H 97 12/14/24 11:24 85 147/92 H 12/14/24 11:23 88 100 12/14/24 11:18 91 H 98 12/14/24 11:13 79 98 12/14/24 11:10 71 131/80 12/14/24 11:08 80 98 12/14/24 11:03 77 98 12/14/24 11:00 20 12/14/24 11:00 36.8 C 20 12/14/24 10:58 82 98 12/14/24 10:54 86 140/88 12/14/24 10:53 91 H 97 12/14/24 10:48 74 98 12/14/24 10:43 82 98 12/14/24 10:39 88 18 126/73 12/14/24 10:38 102 H 97 12/14/24 10:33 77 97 12/14/24 10:28 77 98 12/14/24 10:25 70 136/81 12/14/24 10:23 71 97 12/14/24 10:18 79 99 12/14/24 10:13 99 H 99 12/14/24 10:09 75 18 127/73 12/14/24 10:08 81 98 12/14/24 10:03 76 99 12/14/24 10:00 20 12/14/24 10:00 20 12/14/24 09:58 84 98 12/14/24 09:55 68 120/76 12/14/24 09:53 79 97 12/14/24 09:48 91 H 98 12/14/24 09:43 78 97 12/14/24 09:39 77 120/75 12/14/24 09:38 78 98 12/14/24 09:33 90 99 12/14/24 09:28 84 98 12/14/24 09:24 81 18 134/73 12/14/24 09:23 79 98 12/14/24 09:18 76 98 12/14/24 09:13 79 97 12/14/24 09:08 81 98 12/14/24 09:03 91 H 97 12/14/24 09:00 18 12/14/24 09:00 18 12/14/24 08:58 73 97 12/14/24 08:54 37.0 C 72 20 129/62 12/14/24 08:53 84 98 12/14/24 08:48 69 98 12/14/24 08:43 92 H 98 12/14/24 08:39 81 149/100 H 12/14/24 08:38 93 H 97 12/14/24 08:33 75 96 12/14/24 08:28 74 96 12/14/24 08:24 73 142/88 H 12/14/24 08:23 76 96 12/14/24 08:18 75 95 12/14/24 08:13 72 97 12/14/24 08:10 73 147/85 H 12/14/24 08:08 96 12/14/24 08:08 78 12/14/24 08:08 79 94 12/14/24 08:03 83 96 12/14/24 08:00 18 12/14/24 08:00 18 12/14/24 07:58 70 96 12/14/24 07:55 67 138/89 12/14/24 07:53 71 96 12/14/24 07:48 74 96 12/14/24 07:43 76 97 12/14/24 07:39 85 154/92 H 12/14/24 07:38 87 166/99 H 98 12/14/24 07:33 86 98 12/14/24 07:28 72 97 12/14/24 07:23 83 99 12/14/24 07:18 92 H 98 12/14/24 07:16 80 127/65 12/14/24 07:13 84 97 12/14/24 07:08 93 H 98 12/14/24 07:03 77 96 12/14/24 07:02 37.1 C 77 20 115/62 12/14/24 06:58 79 95 12/14/24 06:53 72 97 12/14/24 06:48 75 96 12/14/24 06:46 77 103/73 12/14/24 06:43 73 97 12/14/24 06:38 80 96 12/14/24 06:33 74 98 12/14/24 06:30 77 111/70 12/14/24 06:28 79 98 12/14/24 06:23 76 98 12/14/24 06:18 74 98 12/14/24 06:15 86 124/71 12/14/24 06:13 92 H 97 12/14/24 06:08 79 98 12/14/24 06:03 97 H 97 12/14/24 05:58 80 98 12/14/24 05:53 93 H 97 12/14/24 05:48 94 H 98 09/05/25 05:46 77 131/68 09/05/25 05:43 80 97 12/14/24 05:38 79 97 12/14/24 05:33 76 97 12/14/24 05:28 77 97 12/14/24 05:23 74 97 12/14/24 05:18 75 97 12/14/24 05:15 83 134/82 12/14/24 05:13 77 97 12/14/24 05:08 78 97 12/14/24 05:03 91 H 154/92 H 98 12/14/24 05:00 90 151/104 H 12/14/24 04:58 96 H 98 12/14/24 04:55 18 12/14/24 04:55 37.0 C 18 12/14/24 04:53 106 H 99 12/14/24 04:48 82 99 12/14/24 04:46 68 150/78 H 12/14/24 04:43 75 96 12/14/24 04:38 72 96 12/14/24 04:33 78 97 12/14/24 04:30 16 136/86 12/14/24 04:28 71 97 12/14/24 04:23 75 97 12/14/24 04:18 78 97 12/14/24 04:16 72 140/79 12/14/24 04:13 75 96 12/14/24 04:08 75 97 12/14/24 04:03 80 96 12/14/24 04:00 79 16 147/85 H 12/14/24 03:58 74 96 12/14/24 03:53 73 96 12/14/24 03:48 78 97 12/14/24 03:47 99 H 93 12/14/24 03:45 73 141/65 H 12/14/24 03:43 81 95 12/14/24 03:38 72 98 12/14/24 03:33 69 97 12/14/24 03:31 75 131/70 12/14/24 03:28 74 96 12/14/24 03:23 76 97 12/14/24 03:18 76 98 12/14/24 03:13 76 97 12/14/24 03:08 71 98 12/14/24 03:03 75 99 12/14/24 03:01 18 12/14/24 03:01 36.9 C 18 12/14/24 03:00 74 136/79 12/14/24 02:58 85 99 12/14/24 02:53 111 H 100 12/14/24 02:48 75 96 12/14/24 02:46 75 107/70 12/14/24 02:45 75 94 12/14/24 02:43 74 95 12/14/24 02:38 74 95 12/14/24 02:33 71 97 12/14/24 02:31 72 102/70 12/14/24 02:28 71 96 12/14/24 02:23 77 94 12/14/24 02:18 75 96 12/14/24 02:16 70 108/69 12/14/24 02:13 76 96 12/14/24 02:08 79 96 12/14/24 02:03 73 97 12/14/24 02:00 68 108/63 12/14/24 01:58 72 97 12/14/24 01:53 73 97 12/14/24 01:48 72 97 12/14/24 01:44 71 110/63 12/14/24 01:43 72 97 12/14/24 01:38 72 97 12/14/24 01:33 83 97 12/14/24 01:31 71 107/68 12/14/24 01:28 71 97 12/14/24 01:23 75 97 12/14/24 01:18 71 97 12/14/24 01:16 69 127/72 12/14/24 01:13 78 97 12/14/24 01:08 71 97 12/14/24 01:04 16 12/14/24 01:04 36.7 C 16 12/14/24 01:03 79 98 12/14/24 00:58 72 97 12/14/24 00:53 69 96 12/14/24 00:48 66 97 12/14/24 00:43 68 96 12/14/24 00:38 66 96 Coding Level of Care Code None Diagnoses Cholestasis during in third trimester O26.643 Obesity affecting O99.210
[2024-12-14] MEDS ORDERED: DEXAMETHASONE SOD INJ 4 MG/ML VIAL ONE (12:45)
[2024-12-14] MEDS ORDERED: OXYTOCIN 10 UNITS/ML VIAL ONE (12:45)
[2024-12-14] MEDS ORDERED: ONDANSETRON INJ 2 MG/ML 2 ML VIAL ONE ×2 (12:45→14:03)
[2024-12-14] MEDS ORDERED: LACTATED RINGER'S 1,000 ML IV SCH ×3 (12:45→14:25)
[2024-12-14] MEDS ORDERED: MoRPHine SULFATE PF 1 MG/ML 10 ML AMP/VIAL ONE (12:45)
[2024-12-14] MEDS ORDERED: LIDOCAINE 2%/EPINEPHRINE 1:200,000 20 ML PF ONE (12:46)
[2024-12-14] MEDS: ACETAMINOPHEN 500 MG TAB PO SCH (12:56)
[2024-12-14] MEDS ORDERED: AZITHROMYCIN 500 MG/255 ML BAG IV SCH (13:00)
[2024-12-14] MEDS: CITRIC ACID/SODIUM CITRATE 15 ML UDC PO SCH (13:20)
[2024-12-14] MEDS ORDERED: NALOXONE HCL 0.4 MG/1 ML VIAL/CARP IV PRN (13:21)
[2024-12-14] MEDS ORDERED: diphenhydrAMINE 50 MG/ML VIAL IV PRN (13:21)
[2024-12-14] MEDS ORDERED: LACTATED RINGER'S 500 ML IV PRN (13:21)
[2024-12-14] MEDS ORDERED: HYDROmorphone INJ 0.5 MG/0.5 ML SYR IV PRN (13:21)
[2024-12-14] MEDS ORDERED: NALOXONE HCL 1 MG in SODIUM CHLORIDE 0.9% 1,000 ML IV PRN (13:21)
[2024-12-14] MEDS ORDERED: PROMETHAZINE 6.25 MG/50.25 ML BAG IV PRN (13:21)
[2024-12-14] MEDS ORDERED: NALOXONE HCL 0.08 MG in SYRINGE 1.8 ML IV PRN (13:21)
[2024-12-14] MEDS ORDERED: ONDANSETRON INJ 2 MG/ML 2 ML VIAL IV PRN (13:21)
[2024-12-14] MEDS ORDERED: NALBUPHINE HCL INJ 10 MG/ML AMP IV PRN (13:21)
[2024-12-14] MEDS: ceFAZolin 3000MG 3,000 MG/72.5 ML BAG IV SCH (13:22)
[2024-12-14] MEDS ORDERED: DC INTRASPINAL MORPHINE SCH (13:30)
[2024-12-14] MEDS ORDERED: NO NARCOTICS OR SEDATIVES SCH (13:30)
[2024-12-14] MEDS ORDERED: SODIUM BICARB 8.4% INJ 50 MEQ/50 ML SYR IV ONE (13:35)
[2024-12-14] MEDS ORDERED: CARBOPROST TROMETHAMINE 250 MCG/ML AMPUL ONE (13:47)
[2024-12-14] MEDS: CARBOPROST TROMETHAMINE 250 MCG/ML AMPUL IM ONE (13:47)
[2024-12-14] MEDS ORDERED: CALCIUM CARBONATE 500 MG CHEWABLE TAB PO PRN (14:25)
[2024-12-14] MEDS ORDERED: MAGNESIUM HYDROXIDE SUSP 30 ML UDC PO PRN (14:25)
[2024-12-14] MEDS ORDERED: BENZOCAINE 20% SPRY 85 APPLN/85 GM CAN EXT PRN (14:25)
[2024-12-14] MEDS ORDERED: SENNA 8.6 MG TAB PO PRN (14:25)
[2024-12-14] MEDS ORDERED: HYDROCORTISONE ACETATE 25 MG SUPP PR PRN (14:25)
--- NOTE | 2024-12-14 14:26 | Operative Report ---
PG Post Operative Report Pre & Post Diagnosis Operation Date: 12/14/24 13:00 Pre-Op Diagnosis: Intrauterine ; failure to progress; primary section Post-Op Diagnosis: same I identified the patient and participated in the time-out.: Yes Procedure Operation Date: 12/14/24 13:00 Actual Procedures p Primary low transverse Section in LD for living male child at 1345(Bilateral) - Ailyn Millard MD, FACOG Surgeon Ailyn Millard MD, FACOG Forging Press Setter Up Dr. Barker Estimated Blood Loss 407 Findings Consistent with Post-Op Diagnosis viable male infant, cephalic, not engaged normal appearing uterus , tubes, ovaries apgars 8/9. Fluids 800cc ivf 400cc uop Specimens none Drains foote Anesthesia Type Labor Epidural Complications none Disposition Accompanied Patient To Recovery: Yes Disposition: L&D Indications 24yowf G1 at 39 weeks iol for cholestasis of . Very unfavorable. Was able after foote, pitocin and arom to get to 5/80/-2. However, was never able to get into a good labor/contraction pattern, despite multiple attempts at pitocin. Description of Procedure The patient was taken to the operating room where she was identified verbally and by bracelet. She was then placed in the supine position with a leftward tilt. A Foote catheter had been placed sterilely. The epidural was dosed. the patient was prepped and draped in a normal standard fashion. the anesthetic was tested and found to be adequate. A time-out was held, identifying correct patient, procedure, positioning and preoperative antibiotics. There were no concerns. A Pfannenstiel skin incision was made with a knife and taken down to the underlying layer of fascia with the knife and Bovie electrocautery. Bleeding was attended to with the Bovie. The fascia was incised in the midline with the knife and taken out laterally with scissors. The superior edge of the fascial incision was grasped, elevated and the underlying layer of rectus muscle was taken off bluntly and with scissors. In a similar fashion, the inferior edge of the fascial incision was grasped, elevated and the underlying layer of rectus muscle was taken off bluntly and with scissors. The muscles were bluntly in the midline. The peritoneum was entered bluntly. The incision was then stretched. The bladder blade was placed. The vesicouterine peritoneum was identified, entered with scissors and taken out laterally with scissors. The bladder flap was created digitally A hysterotomy incision was scored with a knife and the incision was stretched superiorly and inferiorly with the dough cutting machine operator's fingers. The operators hand was placed into the incision and the head was delivered atraumatically. No nuchal cord. The nose and mouth were bulb suctioned. the rest of the infant was then delivered without difficulty. The nose and mouth were again bulb suctioned. The cord was clamped and cut and the infant was then handed off to the awaiting pipe fitter apprentice for drying and attention. Cord blood and segment were obtained. The placenta was Manually extracted. The uterus was exteriorized and cleared of all clot and debris with moistened laparotomy sponges. The hysterotomy incision was repaired in two layers, the first in a running locked layer, the second in an imbricating layer. Hemostasis was noted to be good. Posterior cul-de-sac was irrigated and cleared of all clot and debris. The hysterotomy incision was again inspected and found to be hemostatic. the uterus was reinteriorized. Hysterotomy incision was again inspected and one suture was needed in the left corner. Hemostasis good. The fascia was then reapproximated with 0 Vicryl starting at the edges and meeting in the midline. The subcuticular tissues were copiously irrigated and bleeding was attended to with cautery. The skin was then closed with 4-0 Vicryl in a subcuticular fashion. All sponge, lap and needle counts were correct x 2. The patient tolerated the procedure well and was taken to recovery in stable condition. I attest to the content of the Intraoperative Record and any orders documented therein. Any exceptions are noted below. OB Procedure Charges 32004
[2024-12-14] MEDS: SODIUM CHLORIDE 0.9% 1,000 ML IV SCH (14:52)
[2024-12-14] MEDS: DIPHTHER/TETAN/PERTUS Vaccine (Tdap, Adol/Adult) 0.5mL IM ONE (14:53)
[2024-12-14] MEDS: MoRPHine SULFATE PF 1 MG/ML 10 ML AMP/VIAL EPI ONE (14:53)
[2024-12-14] MEDS: KETOROLAC 30 MG/ML VIAL IV SCH (14:58)
[2024-12-14] MEDS: KETOROLAC 30 MG/ML VIAL ONE (15:33)
[2024-12-14] MEDS ORDERED: SODIUM CHLORIDE 0.9% 100 ML IV PRN (17:24)
[2024-12-14] MEDS: OXYTOCIN 20 UNITS/LR 1,002 ML IV SCH (18:41)
[2024-12-14] MEDS: ACETAMINOPHEN 325 MG TAB PO SCH (20:37)
[2024-12-14] MEDS: SIMETHICONE 80 MG CHEW PO SCH (20:37)
[2024-12-14] MEDS: DOCUSATE SODIUM 100 MG CAP PO SCH (20:37)
[2024-12-15] MEDS: LEVOTHYROXINE SODIUM 150 MCG TABLET PO SCH (06:25)
--- NOTE | 2024-12-15 07:11 | Obstetrical Progress Note ---
Date of Service <Katharine Hollingsworth MD - Last Filed: 12/15/24 07:49> December 15, 2024 Assessment & Plan <Katharine Hollingsworth MD - Last Filed: 12/15/24 07:49> (1) care following delivery: Plan -Stable routine care. Breast feeding. Rhesus Positive. Rubella Immune. On palpation of abdomen, uterus is firm and has begun involution, at approximately 1cm/day <Ailyn Millard MD, FACOG - Last Filed: 12/15/24 07:56> (1) care following delivery: Subjective <Katharine Hollingsworth MD - Last Filed: 12/15/24 07:49> Ambulation: ambulating normally Voiding: no voiding problems Passing Gas:: Yes Diet Tolerance:: regular diet Lochia:: Small Feeding Type:: breast feeding Current Pain Level(1-10): 0 PPD 1 Review of Systems All systems reviewed & are unremarkable except as noted in HPI & below i. Denies fever, chills, sweats ii. Denies SOB, difficulty breathing, chest pain, palpitations, chest pressure iii. Denies breast pain. iv. Denies Dysuria v. Denies headache or changes in vision. Physical Exam <Katharine Hollingsworth MD - Last Filed: 12/15/24 07:49> Constitutional WD/WN, vitals as above Respiratory normal respiratory effort, lungs clear to auscultation Cardiovascular RRR, no murmur, no edema Gastrointestinal (Abdomen) normal bowel sounds, soft, nontender, no hepatosplenomegaly Skin no rashes, warm and dry Psychiatric A+Ox3, euthymic affect Genitourinary On palpation of abdomen, uterus is firm and has begun involution, at approximately 1cm/day. Surgical incision intact with sutures and edges properly annealed. No signs of infection at surgical site. Continue to monitor Results & Data <Katharine Hollingsworth MD - Last Filed: 12/15/24 07:49> Vital Signs (Past 12 Hours) Vital Signs Temp Pulse Resp BP Pulse Ox O2 Del Method 12/15/24 06:15 16 97 12/15/24 05:45 18 97 12/15/24 04:45 16 96 12/15/24 03:00 36.5 C 73 16 121/79 98 Room Air 12/15/24 03:00 16 98 12/15/24 02:30 16 97 12/15/24 01:30 16 96 12/15/24 00:00 14 96 12/14/24 23:45 16 96 12/14/24 23:45 36.7 C 68 16 115/75 96 Room Air 12/14/24 22:00 14 96 12/14/24 21:00 16 97 12/14/24 20:15 16 97 12/14/24 20:15 36.6 C 82 16 128/96 97 Room Air 12/14/24 19:45 16 97 Supervising Physician <Ailyn Millard MD, FACOG - Last Filed: 12/15/24 07:56> Co-Signing Physician Notes Resident Physician Supervision Note: I interviewed and examined the patient. Discussed with Dr. Hollingsworth and agree with findings and plan as documented in the note. Any exceptions or clarifications are listed here: Doing well. ff/nt at u, routine care. Documented By: Ailyn Millard MD, FACOG
[2024-12-15 07:17] LABS: Hematocrit (blood only) 30.9 % (37.0-47.0); Hemoglobin 10.2 g/dl (12.0-16.0); Immature Granulocytes # (auto) 0.08 K/uL (0.01-0.20); Immature Granulocytes % (auto) 0.5 %; Mean Corpuscular Hemoglobin 26.4 pg (25.0-34.0); Mean Corpuscular Volume 79.8 fL (80.0-100.0); Platelet Count 157 K/uL (130-400); RDW Standard Deviation 43.1 fL (36.4-46.3); Red Blood Count 3.87 M/uL (4.20-5.40); White Blood Count 16.25 K/ul (4.8-10.8)
[2024-12-15] MEDS ORDERED: ONDANSETRON INJ 2 MG/ML 2 ML VIAL IV PRN (07:22)
[2024-12-15] MEDS ORDERED: HYDROmorphone INJ 0.5 MG/0.5 ML SYR IV PRN (07:22)
[2024-12-15] MEDS ORDERED: PROMETHAZINE 12.5 MG/50.5 ML BAG IV PRN (07:22)
[2024-12-15] MEDS ORDERED: diphenhydrAMINE Capsule 25 MG CAP PO PRN (07:22)
[2024-12-15] MEDS ORDERED: diphenhydrAMINE 50 MG/ML VIAL IV PRN (07:22)
[2024-12-15] MEDS: PRENATAL VITAMIN 1 TAB PO SCH (08:10)
[2024-12-15] MEDS: FERROUS SULFATE 325 MG TAB PO SCH (08:10)
[2024-12-15] MEDS ORDERED: KETOROLAC 30 MG/ML VIAL IV PRN (14:05)
[2024-12-15] MEDS: IBUPROFEN 600 MG TAB PO SCH (14:16)
[2024-12-16 07:07] LABS: Hematocrit (blood only) 29.1 % (37.0-47.0); Hemoglobin 9.4 g/dl (12.0-16.0)
[2024-12-16 07:37] VITALS: BP 134/82; RESP 16; TEMP 98.4; O2SAT 98
--- NOTE | 2024-12-16 08:38 | Obstetrical Progress Note ---
Date of Service December 16, 2024 Assessment & Plan (1) care following delivery: 24 yo POD 2 from [facility], doing well -Meeting all pp milestones -A+/rubella immune/ -f/u 6 weeks for appt, dc home Subjective Ambulation: ambulating normally Voiding: no voiding problems Passing Gas:: Yes Diet Tolerance:: regular diet Lochia:: Small Feeding Type:: breast feeding Pain well managed with medication Review of Systems Denies fevers, chills, n/v, RAO, CP, SOB Physical Exam Constitutional WD/WN, vitals as above no acute distress Respiratory normal respiratory effort, lungs clear to auscultation Cardiovascular RRR, no murmur, no edema Gastrointestinal (Abdomen) Percussion/Palpation: abdomen soft; abdomen nontender fundus firm at umbilicus and NT, incision c/d/i Musculoskeletal BLE symmetric, nonerythematous, nontender Results & Data Vital Signs (Past 12 Hours) Vital Signs Temp Pulse Resp BP Pulse Ox O2 Del Method 12/16/24 07:25 98.4 F 80 16 134/82 98 Room Air 12/15/24 23:04 98.2 F 77 18 116/70 97 Room Air
[2024-12-16 09:18] VITALS: PULSE 73
[2024-12-16] MEDS ORDERED: IBUPROFEN 600 MG TAB PO PRN (14:05)
[2024-12-16] MEDS ORDERED: ACETAMINOPHEN 325 MG TAB PO PRN (20:05)
--- NOTE | 2024-12-17 12:47 | Discharge Summary ---
Date of Service December 17, 2024 Admission HPI Per Admitting Provider Contractions: Negative Painful: Negative Leaky Fluid: Negative Movement: Present Pt is a 24 yo Female, , 37 wks 1 day, arrives to Labor & Delivery for induction of labor. Pt appears AOx3 and is accompanied by her to the unit Labs: Rhesus Positive, GBS Negative Hx of STDs: Negative Patient presented for iol for choliestasis. Discharge Data Consultations 12/13/24 08:12 Consult Anesthesiology Stat Procedures Performed Operation Date: 12/14/24 13:00 Actual Procedures p Section in LD for living male child at 1345(Bilateral) - Ailyn Millard MD, [facility] Course (1) care following delivery: (2) Cholestasis during in third trimester: (3) Obesity affecting : Plan The patient was admitted for iol for choliestasis. Had a very unfavorable cervix. Was first given cytotec and then pitocin and foote. Once foote fell out, she had epidural, arom and continued pitocin. Was unable to get her past 5cm dilated despite multiple attempts and increasing and stopping pitocin. The patient underwent a primary low transverse c/s without issues. QBL--407cc, Postop course uncomplicated--tolerated a regular diet, ambulated, voided after removal of the Foote and tolerated po pain meds. She was d/c home on pod #2 with routine instructions. h/h 9.4/29.1, Will f/u in 6 weeks. Coding Level of Care Code None Diagnoses care following delivery Z39.2 Cholestasis during in third trimester O26.643 Obesity affecting O99.210
--- NOTE | 2024-12-18 08:30 | Anesthesia Procedure Note ---
Date of Service December 14, 2024 Anesthesia Post Epidural Note Vital Signs Vital Signs: Temp Pulse Resp BP Pulse Ox O2 Del Method 98.4 F 73 16 134/82 98 Room Air 12/16/24 09:12/16/24 09:12/16/24 09:17 12/16/24 09:17 12/16/24 09:12/16/24 07:25 Pain Intensity Bilateral Abdomen: Pain Intensity: 2 Notes Mental Status: alert / awake / arousable and participated in evaluation Patient Amnestic to Procedure: No Nausea / Vomiting: adequately controlled Pain: adequately controlled Airway Patency, RR, SpO2: stable & adequate BP & HR: stable & adequate Hydration State: stable & adequate Neuraxial Anesthesia: was administered and sensory block is resolving Anesthetic Complications: no major complications apparent and Pt Satisfied with anesthetic care Epidural: Removed without complications and With tip intact
--- NOTE | 2024-12-26 11:20 | Coding Query ---
CODING QUERY To promote full compliance with coding requirements relating to patient care, provider participation is requested in all cases of transition mgr rn uncertainty. Please assist us with the question(s) below: Coding Question(s): Please clarify the # weeks gestation. H/P stated 37 / Delivery Summary states 39. Thanks for your help! Olivier Davis MACHINE [facility] Physician's Response(s): Patient delivered at 39 weeks, not 37. Principal Diagnosis: "that condition established after study, to be chiefly responsible for occasioning the admission of the patient to the hospital for care." Co-Existing Principal Diagnosis: "when two or more diagnoses equally meet the criteria for principal diagnosis as determined by the circumstances of admission, diagnostic work up, and/or therapy provided, and the Alphabetic Index, Tabular List, or another coding guideline does not provide sequencing direction, any one of the diagnoses may be sequenced first." "When the physician has documented what appears to be a current diagnosis in the body of the record, but has not included the diagnosis in the final diagnostic statement, the physician should be asked whether the diagnosis should be added." (Source Coding Clinic 2 QTR90. p3-4) JORJE
== END 2024-12-16 10:45 | disposition home or self-care (01) | DRG 786 ==
LOC: 4S1 08:00 → 4E2 12-14 17:33